=== PATIENT | female | born 1995 | race Caucasian/White ===

== ENCOUNTER → 2017-11-29 10:16 | Outpatient (CLI) | payer MEDICAID, SELFPAY ==
[2017-11-29 12:00] LABS: Thyroid Stim Hormone (TSH) 1.05 uIU/mL (0.358-3.74)
== END ==
PROVIDERS: Nurse Practitioner Women's Health; Visit Provider Family Medicine Geriatric Medicine
DX: N91.2 Amenorrhea, unspecified (principal)
CPT/HCPCS: 36415; 84443

== ENCOUNTER → 2023-04-26 | Outpatient (CLI) | payer MEDICAID, SELFPAY | END | disposition home or self-care (01) | PROVIDERS: PCP Family Medicine; Referring Provider Otolaryngology Otolaryngology/Facial Plastic Surgery; Visit Provider Otolaryngology Otolaryngology/Facial Plastic Surgery | DX: J03.90 Acute tonsillitis, unspecified (principal) | CPT/HCPCS: 87070 ==

== ENCOUNTER → 2023-12-27 | Outpatient (CLI) | payer SELFPAY ==
--- NOTE | 2023-12-27 07:01 | CT_ITS ---
STUDY: CT CHEST, ABDOMEN T PELVIS WITH CONTRAST REASON FOR EXAM: Female, 28 years old. Fever of unknown origin RADIATION DOSAGE (If Supplied By Facility): CTDIvol = ( 10.38 ) mGy, DLP = ( 1175.44 ) mGycm TECHNIQUE: Transaxial imaging was performed following intravenous administration of Oral and amp; IV Readi-CAT and amp; 75mL Isovue-370. Individualized dose optimization techniques were used for this CT. COMPARISON: No relevant priors. FINDINGS: CHEST There is elevation of the right hemidiaphragm. Minimal degree of bibasilar atelectasis. There is no demonstrated pleural abnormality. Normal heart and pericardium. Normal mediastinum. Normal hilar regions. Normal unenhanced pulmonary arteries. Normal aorta arch and descending thoracic aorta. Normal osseous structures. There is no demonstrated abnormality of the visualized upper abdomen. ABDOMEN There is decreased attenuation of the liver consistent with steatosis. Normal gallbladder and extrahepatic biliary system. Normal spleen. Normal pancreas. Normal bilateral adrenal glands. Normal right kidney. Normal left kidney. Normal visualized stomach. Normal small intestine. Normal colon. The appendix is visualized and appears normal. Normal abdominal aorta. Normal inferior vena cava. Normal retroperitoneum. Normal abdominal wall. Normal osseous structures. PELVIS Normal urinary bladder. Follicles are seen in the right ovary. Normal visualized small intestine. Normal visualized colon. There is no pelvic fluid. There is no pelvic lymphadenopathy or mass lesion. Normal visualized pelvic arteries. Normal abdominal wall. Normal osseous structures. CT/CT Chest, Abd, Pel w/Contrast IMPRESSION: Mild fatty infiltration of the liver. Mild bibasilar linear atelectasis. Elevation of the right hemidiaphragm. Electronically Signed: Kwesi Caal MD at 14:27 [facility] ,
--- NOTE | 2023-12-27 07:01 | CT_ITS ---
STUDY: CT SOFT TISSUE NECK WITH CONTRAST REASON FOR EXAM: Female, 28 years old. Fever of unknown origin. Sore throat. Muscle and joint pain. Fatigue. RADIATION DOSAGE (If Supplied By Facility): CTDIvol = ( 11 ) mGy, DLP = ( 1175.44 ) mGycm TECHNIQUE: The patient was scanned in a multi-detector CT scanner. High resolution transaxial imaging was performed following intravenous administration of Oral and amp; IV Readi-CAT and amp; 75mL Isovue-370. Sagittal and coronal images were reconstructed. Individualized dose optimization techniques were used for this CT. COMPARISON: None. FINDINGS: Normal bilateral parotid glands. Normal bilateral emergency dispatcher spaces. Normal bilateral parapharyngeal spaces. Normal bilateral carotid spaces. Normal bilateral sublingual and submandibular glands and spaces. Normal visualized nasopharynx. Normal retropharyngeal space. Normal perivertebral space. Mild enlargement of the right faucial tonsils. There is a 3.7 mm area of decreased attenuation with peripheral enhancement along its posterior lateral aspect. This may represent a tiny abscess. The visualized tongue, tongue base and oropharynx are normal. The visualized cervical lymph nodes (levels I-) are within normal size limits, and maintain normal morphology. There is no demonstrated solid or cystic mass lesion. There is no abnormal contrast enhancement. Normal epiglottis, bilateral vallecula and hypopharynx. The pre-epiglottic and paraglottic adipose spaces are normal. Normal visualized bilateral piriform sinuses, aryepiglottic folds, vocal cords, and arytenoid-cricoid articulations. Normal subglottic trachea. Normal bilateral lobes of the thyroid gland. Normal visualized pulmonary apices. Normal visualized paranasal sinuses. Normal visualized cervical spine. CT/Soft Tissue Neck WITH Contrast IMPRESSION: Mild enlargement of the right faucial tonsils with possible tiny abscess along its posterior lateral aspect. This is best seen on axial image #74 on series #3. Electronically Signed: Kwesi Caal MD at 14:24 EST ,
--- OUTSIDE RECORDS SUMMARY | 2023-12-27 07:03 | XMS RPT_ITS | CCD ---
Author Name Unknown Address [id number] [place] [address] Organization [facility] Care Team Providers Care Emergency Response Technician Name Role Phone YANELIS PATEL Unavailable Unavailable ANTHONY PAUL Unavailable Unavailable Yanelis Guerrero Primary Care Provider [phone] Yanelis Guerrero Primary Care Provider Tyler PEREZ, Sully Parikh Primary Care Provider Tyler PEREZ, Sully Parikh Primary Care Provider Tyler PEREZ, Sully Parikh Primary Care Provider SULEMAN NIELSEN Attending Unavailable PHYSICIAN, NOT RECORDED Primary Care Physician U gypsy [facility]-, CRISTOBAL Sifuentes Attending [facility] PHYSICIAN, NOT RECORDED Primary Care Unavaila lillie DELGADILLO STAFF TRAINER-MANAGER STATISTICSTHERESA Attending Demetrio bhandari PHYSICIAN, NOT RECORDED Primary Care Unavaila lillie Lawler STAFF TRAINER-MANAGER STATISTICS, Dianne Brown Primary Care Provider Giovanny Ortiz MD Unavailable SULLY SCOTT Primary Care Unavailable SULEMAN NIELSEN Attending Unavailable SULLY SCOTT Primary Care Unavailable SULEMAN NIELSEN Attending Unavailable DIANNE LAWLER Attending Unavailable SULLY SCOTT Primary Care Unavailable SULLY SCOTT Primary Care Unavailable IVONNE BADILLO Attending Unavailable GIOVANNY ORTIZ Attending Unavailable DIANNE LAWLER Primary Care Unavailable DIANNE LAWLER Referring Unavailable GIOVANNY ORTIZ Referring Unavailable DIANNE LAWLER Primary Care Unavailable GIOVANNY ORTIZ Attending Unavailable SULLY SCOTT Primary Care Unavailable SULLY SCOTT Primary Care Unavailable CRISTELA MADRIGAL Attending Unavailable SULLY SCOTT Primary Care Unavailable Allergies Allergy Classification Reported Allergen(s) Allergy Type Date of Onset Reaction(s) Facility (20 sources) FLUoxetine; Translations: [FLUOXETINE] Drug Allergy 09-08-2020 Mental Status Change, Anxiety [facility] Medications Current Medications Medication Drug Class(es) Dates Sig (Normalized) Sig (Original) amoxicillin 875 mg / clavulanate 125 mg oral tablet (1 source) Penicillin-class Antibacterial Start: 01-10-2023 End: 01-20-2023 take 1 tablet by mouth every twelve hours amoxicillin-clavu lanic acid (AUGMENTIN) 875-125 mg per tablet Indications: Pharyngitis, unspecified etiology Take 1 tablet by mouth every 12 hours for 10 days. 20 tablet 0 01/10/2023 01/20/2023 Active Completed/Discontinued Medications Medication Drug Class(es) Dates Sig (Normalized) Sig (Original) clindamycin 10 mg/ml topical lotion (11 sources) Lincosamide Antibacterial Start: 09-19-2022 Clindamycin Phosphate (CLEOCIN T) 1 % lotion Indications: Acne vulgaris Apply to affected area twice daily. Of chest, may apply to face every morning if needed 60 mL 5 09/19/2022 Active Problems Active Problems Problem Classification Problem Date Documented Date Episodic/Chronic Allergic reactions (1 source) Inflammatory dermatosis; Translations: [Dermatitis, unspecified] Episodic Conditions associated with dizziness or vertigo (1 source) Meniere's disease, bilateral; Translations: [Meniere's disease of both ears] Onset: 03-15-2018 03-15-2018 Chronic Fever of unknown origin (1 source) Fever; Translations: [Fever in adult] Episodic Immunizations and screening for infectious disease (4 sources) Patient encounter status; Translations: [Encounter for immunization] Onset: 09-15-2023 09-15-2023 Episodic Malaise and fatigue (4 sources) Fatigue; Translations: [Other fatigue] Onset: 10-17-2023 10-17-2023 Episodic Menstrual disorders (1 source) Postpill amenorrhea; Translations: [Amenorrhea following discontinuation of oral contraceptive use] Onset: 02-13-2018 02-13-2018 Chronic Mood disorders (16 sources) Recurrent major depression in partial remission; Translations: [Major depressive disorder, recurrent, in partial remission] Onset: 05-21-2020 09-08-2020 Chronic Other and unspecified benign neoplasm (1 source) Multiple benign melanocytic nevi ; Translations: [Melanocytic nevi, unspecified] Episodic Other circulatory disease (1 source) Spider nevus; Translations: [Nevus, non-neoplastic] Episodic Other connective tissue disease (1 source) Muscle pain; Translations: [Myalgia] Episodic Other connective tissue disease (1 source) Disorder of soft tissue; Translations: [Soft tissue disorder, unspecified] Episodic Other connective tissue disease (3 sources) Neuralgia; Translations: [Neuralgia and neuritis, unspecified] Onset: 10-17-2023 10-17-2023 Episodic Other connective tissue disease (1 source) Neuralgia and neuritis, unspecified; Translations: [Nerve pain] Onset: 10-17-2023 Episodic Other fractures (1 source) Closed fracture of vertebral column; Translations: [Unspecified fracture of sacrum, subsequent encounter for fracture with routine healing] Episodic Other non-traumatic joint disorders (3 sources) Joint pain; Translations: [Pain in unspecified joint] Onset: 10-17-2023 10-17-2023 Episodic Other non-traumatic joint disorders (1 source) Pain in unspecified joint; Translations: [Arthralgia, unspecified joint] Onset: 10-17-2023 Episodic Other nutritional; endocrine; and metabolic disorders (1 source) Familial partial lipodystrophy; 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, not elsewhere classified] 05-29-2023 Chronic Other nutritional; endocrine; and metabolic disorders (1 source) Personal history of other endocrine, nutritional and metabolic disease; Translations: [History of type 1 diabetes mellitus] Episodic Other nutritional; endocrine; and metabolic disorders (1 source) Weight gain; Translations: [Weight gain] Episodic Other screening for suspected conditions (not mental disorders or infectious disease) (1 source) Encounter for screening, unspecified; Translations: [Encounter for health-related screening] Onset: 09-06-2023 Episodic Other skin disorders (1 source) Eruption; Translations: [Rash in adult] Episodic Other skin disorders (1 source) Solar lentiginosis; Translations: [Other melanin hyperpigmentation] Episodic Other skin disorders (1 source) Acne vulgaris; Translations: [Acne vulgaris] Episodic Other skin disorders (1 source) Nail discoloration; Translations: [Other nail disorders] Episodic Other upper respiratory infections (6 sources) Acute pharyngitis; Translations: [Acute pharyngitis, unspecified] Onset: 02-28-2023 Episodic Residual codes; unclassified (1 source) Treatment not available; Translations: [Procedure and treatment not carried out for other reasons] Episodic Residual codes; unclassified (1 source) Family history of malignant neoplasm of skin; Translations: [Family history of malignant neoplasm of other organs or systems] Episodic Past or Other Problems Problem Classification Problem Date Documented Da te Episodic/Chronic Abdominal pain (17 sources) Right upper quadrant pain; Translations: [Right upper quadrant pain] Onset: 05-21-2020 05-21-2020 Episodic Cardiac dysrhythmias (16 sources) Palpitations; Translations: [Palpitations] Onset: 05-21-2020 05-21-2020 Episodic Coagulation and hemorrhagic disorders (16 sources) Petechiae; Translations: [Spontaneous ecchymoses] Onset: 05-21-2020 05-21-2020 Episodic Results Test Name Value Interpretation Reference Range Facil ity Vital Signs Date Time Vital Sign Value Performing Clinician Faci lity 10-17-2023 09:41-0500 Body height 167.6 cm Cristela Madrigal APRN.CNP Work Phone: [facility] 10-17-2023 09:41-0500 Body temperature 98.1 [degF] Cristela Madrigal APRN.CNP Work Phone: [facility] 10-17-2023 09:41-0500 Body weight 60.24 kg Cristela Madrigal APRN.CNP Work Phone: [facility] 10-17-2023 09:41-0500 Diastolic blood pressure 79 mm[Hg] Cristela Madrigal APRN.CNP Work Phone: [facility] 10-17-2023 09:41-0500 Heart rate 84 /min Cristela Madrigal APRN.CNP Work Phone: [facility] 10-17-2023 09:41-0500 SaO2% (BldA) [Mass fraction] 99 % Cristela Madrigal APRN.CNP Work Phone: [facility] 12-19-2023 09:41-0500 Systolic blood pressure 117 mm[Hg] Cristela Madrigal STAFF TRAINER.MANAGER STATISTICS Work Phone: [facility] 01-10-2023 13:07-0400 Body temperature 98.8 [degF] Suleman Burdenr STAFF TRAINER.MANAGER STATISTICS Work Phone: [facility] 01-10-2023 13:07-0400 Body weight 61.69 kg Suleman Burdenr STAFF TRAINER.MANAGER STATISTICS Work Phone: [facility] 01-10-2023 13:07-0400 Diastolic blood pressure 80 mm[Hg] Suleman Ilir STAFF TRAINER.MANAGER STATISTICS Work Phone: [facility] 01-10-2023 13:07-0400 Heart rate 98 /min Suleman Nielsen STAFF TRAINER.MANAGER STATISTICS Work Phone: [facility] 01-10-2023 13:07-0400 SaO2% (BldA) [Mass fraction] 97 % Suleman Nielsen STAFF TRAINER.MANAGER STATISTICS Work Phone: [facility] 01-10-2023 13:07-0400 Systolic blood pressure 115 mm[Hg] Suleman Burdenr STAFF TRAINER.MANAGER STATISTICS Work Phone: [facility] 12-01-2022 13:34-0500 Body height 167.6 cm Suleman Nielsen STAFF TRAINER.MANAGER STATISTICS Work Phone: [facility] 12-01-2022 13:34-0500 Body temperature 98.49 [degF] Suleman Burdenr STAFF TRAINER.MANAGER STATISTICS Work Phone: [facility] 12-01-2022 13:34-0500 Body weight 60.78 kg Suleman Nielsen STAFF TRAINER.MANAGER STATISTICS Work Phone: [facility] 12-01-2022 13:34-0500 Diastolic blood pressure 71 mm[Hg] Suleman Burdenr STAFF TRAINER.MANAGER STATISTICS Work Phone: [facility] 12-01-2022 13:34-0500 Heart rate 116 /min Suleman Burdenr STAFF TRAINER.MANAGER STATISTICS Work Phone: [facility] 12-01-2022 13:34-0500 Respiratory rate 16 /min Suleman Ilir STAFF TRAINER.MANAGER STATISTICS Work Phone: [facility] 12-01-2022 13:34-0500 SaO2% (BldA) [Mass fraction] 99 % Suleman Nielsen STAFF TRAINER.MANAGER STATISTICS Work Phone: [facility] 12-01-2022 13:34-0500 Systolic blood pressure 104 mm[Hg] Suleman Nielsen STAFF TRAINER.MANAGER STATISTICS Work Phone: [facility] 09-19-2022 10:29-0500 Body height 167.6 cm Ivonne Waller PA-C Work Phone: [facility] 09-19-2022 10:29-0500 Body weight 62.05 kg Ivonne Waller PA-C Work Phone: [facility] 09-19-2022 10:29-0500 Diastolic blood pressure 73 mm[Hg] Ivonne Justino PA-C Work Phone: [facility] 09-19-2022 10:29-0500 Systolic blood pressure 100 mm[Hg] Ivonne Waller PA-C Work Phone: [facility] 05-25-2022 09:18-0400 Body weight 61.69 kg Dianne Lawler APRN.MANAGER STATISTICS Work Phone: [facility] 05-25-2022 09:18-0400 Diastolic blood pressure 79 mm[Hg] Dianne Lawler STAFF TRAINER.MANAGER STATISTICS Work Phone: [facility] 05-25-2022 09:18-0400 Heart rate 80 /min Dianne Lawler APRN.MANAGER STATISTICS Work Phone: [facility] 05-25-2022 09:18-0400 SaO2% (BldA) [Mass fraction] 99 % Dianne Lawler APRN.MANAGER STATISTICS Work Phone: [facility] 05-25-2022 09:18-0400 Systolic blood pressure 113 mm[Hg] Dianne Lawler APRN.MANAGER STATISTICS Work Phone: [facility] Encounters Encounter Date Encounter Type Care Provider Facility Start: 10-18-2023 Telephone encounter [facility] STAFF TRAINER.MANAGER STATISTICS Work Phone: [facility] Procedures Date Procedure Procedure Detail Performing Clinician Start: 09-15-2023 INFLUENZA VACCINE, P RSV FREE, AGE 6 MO - 64 YR, QUADRIVALENT (AFLURIA, FLUARIX, FLULAVAL, FLUZONE) Dianne Lawler STAFF TRAINER.MANAGER STATISTICS Work Phone: Start: 01-10-2023 RAPID STREP TEST B/O Eryn seph D Ilir STAFF TRAINER.MANAGER STATISTICS Work Phone: Start: 12-01-2022 RAPID STREP TEST B/O Eryn seph D Ilir STAFF TRAINER.MANAGER STATISTICS Work Phone: Start: 06-13-2022 CBC + DIFF Dianne loyola STAFF TRAINER.MANAGER STATISTICS Work Phone: Start: 06-13-2022 Comprehensive metabo lic 2000 panel - Serum or Plasma Dianne Lawler STAFF TRAINER.MANAGER STATISTICS Work Phone: Start: 06-13-2022 LIPID PANEL BASIC Dianne Lawler STAFF TRAINER.MANAGER STATISTICS Work Phone: Start: 06-13-2022 Radex sacrum & coccy x minimum 2 views Dianne Lawler STAFF TRAINER.MANAGER STATISTICS Work Phone: Start: 05-31-2022 Us abdominal real ti me w/image limited Dianne Lawler STAFF TRAINER.MANAGER STATISTICS Work Phone: Start: 04-16-2020 Us abdominal real ti me w/image limited Yanelis Guerrero Work Phone: Start: 10-03-2019 Assay of free thyroxine Yanelis Guerrero Work Phone: Start: 10-03-2019 Assay of thyroid sti mulating hormone tsh Yanelis Guerrero Work Phone: Start: 10-03-2019 Assay of triiodothyr onine t3 free Yanelis Guerrero Work Phone: Start: 10-03-2019 C-reactive protein Scout Guerrero Work Phone: Start: 10-03-2019 CBC WITH DIFFERENTIAL M shane Guerrero Work Phone: Start: 10-03-2019 Comprehensive metabolic panel Yanelis Guerrero Work Phone: Start: 10-03-2019 Creatine kinase total M shane Guerrero Work Phone: Start: 10-03-2019 GLOMERULAR FILTRATION RATE Yanelis Guerrero Work Phone: Start: 10-03-2019 Hemoglobin A1c/Hemoglobin.total in Blood Yanelis Guerrero Work Phone: Start: 10-03-2019 Lipid panel Yanelis godwin Work Phone: Start: 10-03-2019 Rheumatoid factor quantitative Yanelis Guerrero Work Phone: Start: 10-03-2019 Sedimentation rate r bc automated Yanelis Guerrero Work Phone: Start: 07-30-2018 Microscopic observat ion [Identifier] in Cervix by Cyto stain Yanelis [place] Plan of Treatment Date Care Activity Detail Author Start: 09-15-2033 Urine microalbumin profile DTa P,Tdap,Td Vaccine (2 - Td or Tdap) [facility] Start: 10-17-2024 Covid-19 Vaccine (#1) Covid-19 Vacci ne (#1) [facility] Immunizations Immunization Date Immunization Notes Care Provider Fa cility 09-15-2023 influenza, injectabl e, quadrivalent, preservative free Sully Scott MD Work Phone: [facility] 09-15-2023 tetanus toxoid, redu cachorro diphtheria toxoid, and acellular pertussis vaccine, adsorbed Sully Scott MD Work Phone: [facility] 10-03-2019 influenza, seasonal, injectable Yanelis Guerrero [facility] 07-30-2018 hepatitis A and hepatitis B vaccine Mohsen Tamayo APRN.MANAGER STATISTICS Work Phone: [facility] 07-30-2018 hepatitis B vaccine, unspecified formulation Provider [facility] Payers Date Payer Category Payer Self-pay 2018 Unknown [employer] xxxxxxxxxx 2018-Present xxxxxxxxxx [id number] 2018 Unknown IZA COU[employer] HI X [id number] 2018-Present HMO [id number] 1995 Unknown [id number] 1995 Unknown [id number] Unknown [id number] Unknown [id number] Unknown [id number] Unknown [id number] Social History Date Type Detail Facility Start: 10-03-2019 Tobacco smoking stat us [facility] Former smoker [facility] Start: 10-03-2019 End: 10-17-2023 Alcohol intake Current drinker of alcohol (finding) [facility] Start: 02-13-2018 Alcohol Comment social [facility] Start: 1995 Sex Assigned At Not on file [facility] Start: 09-02-2021 End: 10-17-2023 Tobacco smoking status INIS Never smoked tobacco [facility] Start: 09-02-2021 End: 01-10-2023 Tobacco use and exposure Smokeless tobacco non-user [facility] Start: 09-08-2020 End: 09-02-2021 History SDOH Alcohol Frequency 2 [facility] Start: 09-02-2021 History SDOH Alcohol Comment occ [facility] Start: 09-02-2021 History SDOH Social Connections Phone 3 [facility] Start: 09-02-2021 History SDOH Social Connections Meetings 1 [facility] Start: 09-02-2021 History SDOH Social Connections Living 7 [facility] Start: 05-15-2022 End: 09-19-2022 Exposure to SARS-CoV-2 (event) Not sure [facility] Tobacco smoking status No Smokin g Status Entered [facility] Sex Assigned At Female [facility] Start: 05-29-2023 End: 09-06-2023 History of Social function [facility] Start: 05-29-2023 End: 09-06-2023 Tobacco use panel [facility] Do you belong to any clubs or organizations such as religious groups, unions, fraternal or athletic groups, or school groups? No [facility] Are you now , , , , never or living with a partner? Never [facility] How often to you hav e a drink containing alcohol? Monthly or less [facility] Average Number of Drinks Not on file [facility] Start: 10-17-2023 Tobacco use and exposure User of smokeless tobacco [facility] How often to you hav e a drink containing alcohol? Never [facility] Do you feel stress - tense, restless, nervous, or anxious, or unable to sleep at night because your mind is troubled all the time - these days [OSQ] To some extent [facility] Start: 10-17-2023 Tobacco Comment Occ, nicotine gum [facility] NEGATED: Highlighted rowStart: RODRIGOF History of tobacco use Passive smoker [facility] Clinical Notes 04-24-2022 to 10-18-2023 Telephone Encounter - Edna Desir MA - 10/18/2023 1:32 PM Tiffany Longo - 10/17/2023 10:11 AM Cristela Carranza APRN.CNP - 10/17/2023 9:50 AM ESTPatient Instructions Note Date & Type Note Facility 10-18-2023 Miscellaneous Notes Per Cristela Please let patient know that her lyme testing was negative. :Pt informed of message. No questions at this time. documented in this encounter [facility] 10-17-2023 Note HNO ID: [id number] Author: Cristela Madrigal APRN.CNP Service: ? Author Type: Nurse Practitioner Type: Progress Notes Filed: 10/17/2023 10:08 AM Note Text: Morgan Boston is a 28 year old female here today acutely because of having: Patient presents with: Mass: On and off for 1 year, discuss having Lymes test Sore Throat Dizziness Fatigue Neck Pain Nerve Pain Musculoskeletal Problem: Twitching and numbness Headache Tonsillar and lymph node swelling on and off for the past 1 year. Nerve pain: Mostly hands, feet, and legs. She states started out with numbness/tingling about 6 years ago. Has been having some numbness and tingling at night, hurts during the day. Tingling and stabbing at night. Legs and feet hurt at night. She states doesn't feel like joints, muscles, or bones. This has improved. She states if she is sick or stressed out she will have flare ups . Lots of muscle twitching all over. Fevers off and on for the past 1 year. This has improved over the past 1 year. She states her normal temperature is around 97. Hasn't actually been checking her temperature consistently. States she feels feverish . Feels like she is having flare ups . Has gone about 6 days without symptoms. Has been having 3 days on and 1 normal day and then will have another flare . Saw GI provider in the past and states she looked for autoimmune, thyroid, hgb A1c has been normal. She states she does not want to do any additional testing. She only wants checked for lyme dz. Review of Systems Constitutional: Positive for fatigue and fever (subjective). Negative for chills. HENT: Positive for sore throat. Postnasal drip: cbc. Musculoskeletal: Positive for arthralgias, myalgias and neck pain. Neurological: Positive for dizziness and headaches. Physical Exam Constitutional: Appearance: Normal appearance. Cardiovascular: Rate and Rhythm: Normal rate and regular rhythm. Pulmonary: Effort: Pulmonary effort is normal. Breath sounds: Normal breath sounds. Abdominal: General: Abdomen is flat. Bowel sounds are normal. Palpations: Abdomen is soft. Skin: General: Skin is warm and dry. Neurological: Mental Status: She is alert and oriented to person, place, and time. Psychiatric: Mood and Affect: Mood normal. Behavior: Behavior normal. Ht 167.6 cm (5' 5.98 ) Wt 60.2 kg (132 lb 12.8 oz) LMP 09/27/2021 (Exact Date) BMI 21.44 kg/m? BMI 21.44 kg/(m2) ASSESSMENT/PLAN: 1. Fatigue, unspecified type - ICD9: 780.79, ICD10: R53.83 (primary diagnosis) - LYME AB LATE >30 DAYS SYMPTOMS 2. Arthralgia, unspecified joint - ICD9: 719.40, ICD10: M25.50 - LYME AB LATE >30 DAYS SYMPTOMS 3. Nerve pain - ICD9: 729.2, ICD10: M79.2 - LYME AB LATE >30 DAYS SYMPTOMS Cristela Madrigal APRN.[facility] 10-17-2023 Nurse Note Venipuncture performed to left antecubital. Number of tubes collected: 1 gold. documented in this encounter [facility] 10-17-2023 History of Presen t illness Narrative Morgan Boston is a 28 year old female here today acutely because of having: Patient presents with: Mass: On and off for 1 year, discuss having Lymes test Sore Throat Dizziness Fatigue Neck Pain Nerve Pain Musculoskeletal Problem: Twitching and numbness Headache Tonsillar and lymph node swelling on and off for the past 1 year. Nerve pain: Mostly hands, feet, and legs. She states started out with numbness/tingling about 6 years ago. Has been having some numbness and tingling at night, hurts during the day. Tingling and stabbing at night. Legs and feet hurt at night. She states doesn't feel like joints, muscles, or bones. This has improved. She states if she is sick or stressed out she will have flare ups . Lots of muscle twitching all over. Fevers off and on for the past 1 year. This has improved over the past 1 year. She states her normal temperature is around 97. Hasn't actually been checking her temperature consistently. States she feels feverish . Feels like she is having flare ups . Has gone about 6 days without symptoms. Has been having 3 days on and 1 normal day and then will have another flare . Saw GI provider in the past and states she looked for autoimmune, thyroid, hgb A1c has been normal. She states she does not want to do any additional testing. She only wants checked for lyme dz. Review of Systems Constitutional: Positive for fatigue and fever (subjective). Negative for chills. HENT: Positive for sore throat. Postnasal drip: cbc. Musculoskeletal: Positive for arthralgias, myalgias and neck pain. Neurological: Positive for dizziness and headaches. Physical Exam Constitutional: Appearance: Normal appearance. Cardiovascular: Rate and Rhythm: Normal rate and regular rhythm. Pulmonary: Effort: Pulmonary effort is normal. Breath sounds: Normal breath sounds. Abdominal: General: Abdomen is flat. Bowel sounds are normal. Palpations: Abdomen is soft. Skin: General: Skin is warm and dry. Neurological: Mental Status: She is alert and oriented to person, place, and time. Psychiatric: Mood and Affect: Mood normal. Behavior: Behavior normal. Ht 167.6 cm (5' 5.98 ) Wt 60.2 kg (132 lb 12.8 oz) LMP 09/27/2021 (Exact Date) BMI 21.44 kg/m BMI 21.44 kg/(m^2) ASSESSMENT/PLAN: 1. Fatigue, unspecified type - ICD9: 780.79, ICD10: R53.83 (primary diagnosis) - LYME AB LATE >30 DAYS SYMPTOMS 2. Arthralgia, unspecified joint - ICD9: 719.40, ICD10: M25.50 - LYME AB LATE >30 DAYS SYMPTOMS 3. Nerve pain - ICD9: 729.2, ICD10: M79.2 - LYME AB LATE >30 DAYS SYMPTOMS Cristela Madrigal APRN.MANAGER STATISTICS documented in this encounter [facility] 09-18-2023 Miscellaneous Notes Patient [facility] a [facility] [facility] 09-15-2023 Nurse Note Patient received tdap and flu shot at 1140 Explained to patient she will need to wait here for 15 minutes for us to monitor to make sure she is not going to have an adverse reaction. Seated in lobby at 1140 Patient left at 1155 with no complications. Yanelis Hernandez MA documented in this encounter [facility] 09-15-2023 Miscellaneous Notes Addended by: DIANNE LAWLER on: 09/15/2023 11:13 AM Modules accepted: Orders Flu and tdap entered. Patient will be coming in to get Flu and Tdap. Advised we dont have adult MMR and she can use the health department. Unable to contact patient to advise that we can't give Hep B or MMR. Will you put orders in for the Flu and Tdap in case she shows up and still wants these done here? Thank you documented in this encounter [facility] 06-22-2023 Miscellaneous Notes Patient calls today. Reason for Call: She wanted to know if we could order las to check a medication someone else prescribes... I let her know she should contact that provider. She said she would. [phone] (home) [phone] (cell) Patient last appointment: 01/10/2023 Liane Gutierrez documented in this encounter [facility] 05-17-2023 Evaluation + Plan note Diagnostic Tests PendingTGT Ab (IGA) 05/17/23Antinuclear Antibody Screen, Serum 05/17/23Mitochondrial Antibody 05/17/23Smooth Muscle Antibody Screen 05/17/23 [facility] 03-02-2023 Note . MICRO - Microbiology PROCEDURE: Culture Beta Strep Only [*1] SOURCE: Throat BODY SITE: COLLECTED DATE/TIME: 02/28/2023 15:01 EDT RECEIVED DATE/TIME: 02/28/2023 18:40 EDT START DATE/TIME: 02/28/2023 18:41 EDT FREE TEXT SOURCE: FINAL REPORTS Final Report [] Verified Date/Time/Personnel: 03/02/2023 07:09 EDT No Beta Strep isolated at 48hrs. PRELIMINARY REPORTS Preliminary Report [] Verified Date/Time/Personnel: 03/01/2023 08:46 EDT No beta Strep isolated at 24 hours. Performing Locations *1: This test was performed at: [facility], [address] [place] [address], [facility] , [facility] ([place]) 01-10-2023 Note HNO ID: [id number] Author: Suleman Nielsen APRN.MANAGER STATISTICS Service: ? Author Type: Nurse Practitioner Type: Progress Notes Filed: 01/10/2023 1:49 PM Note Text: Morgan Boston is a 27 year old female here today acutely because of having: Sore Throat and Fever Patient states 3 days ago she started with a fever and sore throat. Denies any nasal congestion, drainage, nausea, vomiting, abdominal pain, rash. Has been around her brother with similar symptoms. Currently is taking [id number] Tylenol and ibuprofen as needed for pain. Does report this is the third time she has had the same symptoms in the last couple months. Discussed possible referral to ENT if it returns, but patient does not want to have her tonsils removed. Review of Systems Constitutional: Positive for fever. Negative for chills and fatigue. HENT: Positive for sore throat. Negative for congestion, ear pain, postnasal drip, rhinorrhea and sinus pain. Respiratory: Negative for cough, chest tightness, shortness of breath and wheezing. Cardiovascular: Negative for chest pain, palpitations and leg swelling. Gastrointestinal: Negative for abdominal pain, diarrhea, nausea and vomiting. Skin: Negative for color change and rash. Neurological: Negative for dizziness and headaches. BP 115/80 Pulse 98 Temp 37.1 ?C (98.8 ?F) (Oral) Wt 61.7 kg (136 lb) LMP 09/27/2021 (Exact Date) SpO2 97% BMI 21.96 kg/m? BMI 21.96 kg/(m2) ALLERGIES Allergen Reactions Prozac [Fluoxetine] Mental Status Change sleepiness Physical Exam Constitutional: Appearance: Normal appearance. HENT: Right Ear: Tympanic membrane, ear canal and external ear normal. Left Ear: Tympanic membrane, ear canal and external ear normal. Nose: No congestion or rhinorrhea. Right Sinus: No maxillary sinus tenderness or frontal sinus tenderness. Left Sinus: No maxillary sinus tenderness or frontal sinus tenderness. Mouth/Throat: Mouth: Mucous membranes are moist. Pharynx: Posterior oropharyngeal erythema (white lesions) present. Cardiovascular: Rate and Rhythm: Normal rate and regular rhythm. Heart sounds: Normal heart sounds. No murmur heard. Pulmonary: Effort: Pulmonary effort is normal. No respiratory distress. Breath sounds: Normal breath sounds. No wheezing. Skin: General: Skin is warm and dry. Neurological: Mental Status: She is alert and oriented to person, place, and time. ASSESSMENT/PLAN: 1. Pharyngitis, unspecified etiology - ICD9: 462, ICD10: J02.9 (primary diagnosis) - suspect strep - Rapid Strep negative in the office today and Throat culture pending - AMOXICILLIN 875 MG-POTASSIUM CLAVULANATE 125 MG TABLET 2. Sore throat - ICD9: 462, ICD10: J02.9 - RAPID STREP TEST B/O - THROAT CULTURE Suleman Nielsen CNP Follow Up: Return if symptoms worsen or fail to improve. Prescription instructions reviewed with patient as applicable. Patient advised if symptoms do not improve or if symptoms worsen sooner, to contact their primary care physician. Potential red flag symptoms discussed with the patient. Reviewed appropriate action plan to take if red flag symptoms occur. Patient agreeable to treatment plan. Voice recognition software utilized. Minor grammatical and/or spelling errors may exist. Portions of this note have been entered by ancillary staff. I have reviewed and when necessary edited, so that they are an adequate record of my encounter with this patient. [facility] 01-10-2023 History of Presen t illness Narrative Morgan Boston is a 27 year old female here today acutely because of having: Sore Throat and Fever Patient states 3 days ago she started with a fever and sore throat. Denies any nasal congestion, drainage, nausea, vomiting, abdominal pain, rash. Has been around her brother with similar symptoms. Currently is taking [id number] Tylenol and ibuprofen as needed for pain. Does report this is the third time she has had the same symptoms in the last couple months. Discussed possible referral to ENT if it returns, but patient does not want to have her tonsils removed. Review of Systems Constitutional: Positive for fever. Negative for chills and fatigue. HENT: Positive for sore throat. Negative for congestion, ear pain, postnasal drip, rhinorrhea and sinus pain. Respiratory: Negative for cough, chest tightness, shortness of breath and wheezing. Cardiovascular: Negative for chest pain, palpitations and leg swelling. Gastrointestinal: Negative for abdominal pain, diarrhea, nausea and vomiting. Skin: Negative for color change and rash. Neurological: Negative for dizziness and headaches. BP 115/80 Pulse 98 Temp 37.1 C (98.8 F) (Oral) Wt 61.7 kg (136 lb) LMP 09/27/2021 (Exact Date) SpO2 97% BMI 21.96 kg/m BMI 21.96 kg/(m^2) ALLERGIES Allergen Reactions Prozac [Fluoxetine] Mental Status Change sleepiness Physical Exam Constitutional: Appearance: Normal appearance. HENT: Right Ear: Tympanic membrane, ear canal and external ear normal. Left Ear: Tympanic membrane, ear canal and external ear normal. Nose: No congestion or rhinorrhea. Right Sinus: No maxillary sinus tenderness or frontal sinus tenderness. Left Sinus: No maxillary sinus tenderness or frontal sinus tenderness. Mouth/Throat: Mouth: Mucous membranes are moist. Pharynx: Posterior oropharyngeal erythema (white lesions) present. Cardiovascular: Rate and Rhythm: Normal rate and regular rhythm. Heart sounds: Normal heart sounds. No murmur heard. Pulmonary: Effort: Pulmonary effort is normal. No respiratory distress. Breath sounds: Normal breath sounds. No wheezing. Skin: General: Skin is warm and dry. Neurological: Mental Status: She is alert and oriented to person, place, and time. ASSESSMENT/PLAN: 1. Pharyngitis, unspecified etiology - ICD9: 462, ICD10: J02.9 (primary diagnosis) - suspect strep - Rapid Strep negative in the office today and Throat culture pending - AMOXICILLIN 875 MG-POTASSIUM CLAVULANATE 125 MG TABLET 2. Sore throat - ICD9: 462, ICD10: J02.9 - RAPID STREP TEST B/O - THROAT CULTURE Suleman Nielsen CNP Follow Up: Return if symptoms worsen or fail to improve. Prescription instructions reviewed with patient as applicable. Patient advised if symptoms do not improve or if symptoms worsen sooner, to contact their primary care physician. Potential red flag symptoms discussed with the patient. Reviewed appropriate action plan to take if red flag symptoms occur. Patient agreeable to treatment plan. Voice recognition software utilized. Minor grammatical and/or spelling errors may exist. Portions of this note have been entered by ancillary staff. I have reviewed and when necessary edited, so that they are an adequate record of my encounter with this patient. documented in this encounter [facility] 12-01-2022 Note HNO ID: [id number] Author: Suleman Nielsen APRN.ARUNA Service: ? Author Type: Nurse Practitioner Type: Progress Notes Filed: 12/01/2022 2:38 PM Note Text: Morgan Boston is a 27 year old female here today acutely because of having: Sore Throat, Body Aches, Fever, Headache, and Nausea Patient states patient states she started with a sore throat, headache, nausea, fever over a month ago. She was seen at [facility] [facility] and with walk-in clinic and was given amoxicillin or Augmentin, but was feeling better the next day so she did not take it. Pt started with the same symptoms 6 days ago so she started the medication for several days, but feels it was not doing anything after 48 hours, so she stopped the medication. Denies any nasal congestion, drainage, cough or vomiting. Currently is taking ibuprofen for the pain. Review of Systems Constitutional: Positive for chills and fever. Negative for diaphoresis and fatigue. HENT: Positive for sore throat. Negative for congestion, ear pain, postnasal drip, rhinorrhea and sinus pain. Respiratory: Negative for cough, chest tightness, shortness of breath and wheezing. Cardiovascular: Negative for chest pain, palpitations and leg swelling. Gastrointestinal: Positive for nausea. Negative for abdominal pain, diarrhea and vomiting. Musculoskeletal: Positive for myalgias. Skin: Negative for color change and rash. Neurological: Positive for headaches. Negative for dizziness. BP 104/71 (BP Site: Right Arm, BP Position: Sitting, BP Cuff Size: Regular Adult) Pulse 116 Temp 36.9 ?C (98.5 ?F) (Oral) Resp 16 Ht 167.6 cm (5' 5.98 ) Wt 60.8 kg (134 lb) LMP 09/27/2021 (Exact Date) SpO2 99% BMI 21.64 kg/m? BMI 21.64 kg/(m2) ALLERGIES Allergen Reactions Prozac [Fluoxetine] Mental Status Change sleepiness Physical Exam Constitutional: Appearance: Normal appearance. HENT: Right Ear: Tympanic membrane and external ear normal. Left Ear: Tympanic membrane and external ear normal. Ears: Comments: Erythremic ear canals Nose: Congestion and rhinorrhea present. Right Sinus: No maxillary sinus tenderness or frontal sinus tenderness. Left Sinus: No maxillary sinus tenderness or frontal sinus tenderness. Mouth/Throat: Mouth: Mucous membranes are moist. Pharynx: Posterior oropharyngeal erythema (with white lesions on tonsils) present. Cardiovascular: Rate and Rhythm: Normal rate and regular rhythm. Heart sounds: Normal heart sounds. No murmur heard. Pulmonary: Effort: Pulmonary effort is normal. No respiratory distress. Breath sounds: Normal breath sounds. No wheezing. Skin: General: Skin is warm and dry. Neurological: Mental Status: She is alert and oriented to person, place, and time. ASSESSMENT/PLAN: 1. Acute pharyngitis, unspecified etiology - ICD9: 462, ICD10: J02.9 (primary diagnosis) - suspect strep - patient start the antibiotic several days ago and took the last dose last night. Will start the medication back up today and will finish the 10 days. - use warm salt water gargles. - Rapid Strep negative in the office today 2. Sore throat - ICD9: 462, ICD10: J02.9 - RAPID STREP TEST B/O Suleman Nielsen CNP Follow Up: Return if symptoms worsen or fail to improve. Voice recognition software utilized. Minor grammatical and/or spelling errors may exist. Portions of this note have been entered by ancillary staff. I have reviewed and when necessary edited, so that they are an adequate record of my encounter with this patient. [facility] 12-01-2022 History of Presen t illness Narrative Morgan Boston is a 27 year old female here today acutely because of having: Sore Throat, Body Aches, Fever, Headache, and Nausea Patient states patient states she started with a sore throat, headache, nausea, fever over a month ago. She was seen at [facility] [facility] and with walk-in clinic and was given amoxicillin or Augmentin, but was feeling better the next day so she did not take it. Pt started with the same symptoms 6 days ago so she started the medication for several days, but feels it was not doing anything after 48 hours, so she stopped the medication. Denies any nasal congestion, drainage, cough or vomiting. Currently is taking ibuprofen for the pain. Review of Systems Constitutional: Positive for chills and fever. Negative for diaphoresis and fatigue. HENT: Positive for sore throat. Negative for congestion, ear pain, postnasal drip, rhinorrhea and sinus pain. Respiratory: Negative for cough, chest tightness, shortness of breath and wheezing. Cardiovascular: Negative for chest pain, palpitations and leg swelling. Gastrointestinal: Positive for nausea. Negative for abdominal pain, diarrhea and vomiting. Musculoskeletal: Positive for myalgias. Skin: Negative for color change and rash. Neurological: Positive for headaches. Negative for dizziness. BP 104/71 (BP Site: Right Arm, BP Position: Sitting, BP Cuff Size: Regular Adult) Pulse 116 Temp 36.9 C (98.5 F) (Oral) Resp 16 Ht 167.6 cm (5' 5.98 ) Wt 60.8 kg (134 lb) LMP 09/27/2021 (Exact Date) SpO2 99% BMI 21.64 kg/m BMI 21.64 kg/(m^2) ALLERGIES Allergen Reactions Prozac [Fluoxetine] Mental Status Change sleepiness Physical Exam Constitutional: Appearance: Normal appearance. HENT: Right Ear: Tympanic membrane and external ear normal. Left Ear: Tympanic membrane and external ear normal. Ears: Comments: Erythremic ear canals Nose: Congestion and rhinorrhea present. Right Sinus: No maxillary sinus tenderness or frontal sinus tenderness. Left Sinus: No maxillary sinus tenderness or frontal sinus tenderness. Mouth/Throat: Mouth: Mucous membranes are moist. Pharynx: Posterior oropharyngeal erythema (with white lesions on tonsils) present. Cardiovascular: Rate and Rhythm: Normal rate and regular rhythm. Heart sounds: Normal heart sounds. No murmur heard. Pulmonary: Effort: Pulmonary effort is normal. No respiratory distress. Breath sounds: Normal breath sounds. No wheezing. Skin: General: Skin is warm and dry. Neurological: Mental Status: She is alert and oriented to person, place, and time. ASSESSMENT/PLAN: 1. Acute pharyngitis, unspecified etiology - ICD9: 462, ICD10: J02.9 (primary diagnosis) - suspect strep - patient start the antibiotic several days ago and took the last dose last night. Will start the medication back up today and will finish the 10 days. - use warm salt water gargles. - Rapid Strep negative in the office today 2. Sore throat - ICD9: 462, ICD10: J02.9 - RAPID STREP TEST B/O Suleman Nielsen CNP Follow Up: Return if symptoms worsen or fail to improve. Voice recognition software utilized. Minor grammatical and/or spelling errors may exist. Portions of this note have been entered by ancillary staff. I have reviewed and when necessary edited, so that they are an adequate record of my encounter with this patient. documented in this encounter [facility] 11-07-2022 Note HNO ID: [id number] Author: Dianne Lawler APRN.ARUNA Service: ? Author Type: Nurse Practitioner Type: Progress Notes Filed: 11/07/2022 12:46 PM Note Text: Morgan Boston is a 27 year old female here today for a check up on her medical problems. Concern(s) today include: referral (Patient states that her and Dr. Scott had talked about a referral and a work up on her fatty liver. Patient would like to discuss more about this and do what needs to be done to get this going. 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 She had a1c with [employer] a year ago. She states result was 5.8. Paternal grandmother had Type II diabetes and her father has Type I diabetes. She has been seeing [facility] for painful menstrual cycles, irregular cycles, and hair on her chin. She stopped OCP around 5 years ago. She did not have a menstrual cycle for about 1-2 years after stopping OCP. She was last seen by Dr. Reina a little over a year ago. Patient reports nerve pain in hands, legs, and arms. She states at times pain down her spine. She states she has a lot of muscle twitching. She states this all started around age 23. She reports being clumsy, bumping into things, headaches, hearing loss with headaches. She states she had an MRI when she was 24. She states she saw neurology then and work up was negative. Her medications were reviewed today and her list is now up to date. She is compliant on taking her medications :Yes She is tolerating her medication(s) without side effects: Yes She is following an appropriate diet for her medical problems: Yes ACTIVE PROBLEM LIST Recurrent Major Depressive Disorder, in Partial Remission (Hcc) Chronic Ruq Pain Palpitations Petechiae PAST MEDICAL HISTORY Diagnosis Date Anxiety and depression PAST SURGICAL HISTORY Procedure Laterality Date NONE Social History Tobacco Use Smoking status: Never Smokeless tobacco: Never Vaping Use Vaping Use: Never used Substance Use Topics Alcohol use: Yes Comment: occ Drug use: Never Current Outpatient Medications on File Prior to Visit Medication Sig tretinoin (RETIN-A) 0.025 % topical cream Apply pea size drop to entire face at bedtime Clindamycin Phosphate (CLEOCIN T) 1 % lotion Apply to affected area twice daily. Of chest, may apply to face every morning if needed [DISCONTINUED] citalopram hydrobromide (CELEXA) 10 mg tablet Take 1 tablet by mouth once daily. No current facility-administered medications on file prior to visit. FAMILY HISTORY Problem Relation Age of Onset Diabetes Father Type 1 Pancreatic Cancer Maternal Grandmother Skin Cancer Maternal Aunt ALLERGIES Allergen Reactions Prozac [Fluoxetine] Mental Status Change sleepiness Review of Systems Constitutional: Negative for chills and fever. Respiratory: Negative for cough and shortness of breath. Cardiovascular: Negative for chest pain. Gastrointestinal: Positive for abdominal pain. Negative for reflux symptoms or heartburn BP 119/80 (BP Site: Right Arm, BP Position: Sitting, BP Cuff Size: Regular Adult) Pulse 84 Wt 63 kg (139 lb) LMP 09/27/2021 (Exact Date) SpO2 99% BMI 22.44 kg/m? BMI 22.44 kg/(m2) Glucose (mg/dL) Date Value 06/13/2022 94 Potassium (mmol/L) Date Value 06/13/2022 4.1 Sodium (mmol/L) Date Value 06/13/2022 138 Chloride (mmol/L) Date Value 06/13/2022 104 CO2 (mmol/L) Date Value 06/13/2022 27 Creatinine (mg/dL) Date Value 06/13/2022 0.62 BUN (mg/dL) Date Value 06/13/2022 9 Anion Gap (mmol/L) Date Value 06/13/2022 11.1 Calcium (mg/dL) Date Value 06/13/2022 8.9 Cholesterol, Total Date Value Ref Range Status 06/13/2022 170 130 - 200 mg/dL Final HDL Cholesterol Date Value Ref Range Status 06/13/2022 44 mg/dL Final Comment: National Cholesterol Education Program (NCEP) guidelines: <40 mg/dL: Low HDL-Cholesterol(major risk factor for CHD) > or = 60 mg/dL: High HDL-Cholesterol( negative risk factor for CHD) HDL-cholesterol is affected by a number of factors, e.g., smoking, exercise, hormones, sex, and age. 4th Generation Test; Results may be approximately 7% lower than previous values. LDL Date Value Ref Range Status 06/13/2022 111 mg/dL Final Comment: LDL: OPTIMAL FOR PEOPLE AT VERY HIGH RISK <70 OPTIMAL <100 NEAR OPTIMAL 100-129 BORDERLINE HIGH 130-159 HIGH 160-189 VERY HIGH >=190 Source: 2009 NCEP ATP III, ADA Guidelines Reviewed: January, Triglyceride Date Value Ref Range Status 06/13/2022 75 mg/dL Final Comment: TRIG: DESIRABLE: <150 mg/dL Hemoglobin A1C (%) Date Value 09/02/2021 5.8 Physical Exam Constitutional: Appearance: Normal appearance. HENT: Head: Normocephalic and atraumatic. Cardiovascular: Rate and Rhythm: Normal rate and regular rhythm. Pulses: Normal pulses. Heart sounds: Normal heart sounds. No murmur heard. No fr (more content not included)... [facility] 11-07-2022 Miscellaneous Notes Faxed hepatology referral, demographics, office notes, labs and imaging to [facility] Faxed medical genetics referral, demographics, office notes and labs to [facility] per patient's request. Patient advised they will call to schedule appointments. documented in this encounter [facility] 10-25-2022 Miscellaneous Notes Patient called in and said for the past two days she has been having a fever, body aches, migraine and her tonsils are swollen/white. No available appointments so I offered the walk in clinic. documented in this encounter [facility] 09-19-2022 Note HNO ID: [id number] Author: Ivonne Badillo PA-C Service: ? Author Type: Physician Composing Room Machinist Apprentice Type: Progress Notes Filed: 09/25/2022 10:19 PM Note Text: This is a 27 year old female without a personal history of skin cancer who presents today for a full skin exam. Concerned with a couple of moles. Denies any other growing or changing lesions, lesions which have been bleeding or itching, or any other lesions of concern today. She has a rash on her neck that comes and goes and it gets very dry and itchy. She states her rash is better now. She also has a fungus on her left great toe. She has tried a lot of OTC products but has not been successful. She has white areas on her nail. She is also having trouble with break outs on her face and chest. She has been using otc cleansers. She states she is having trouble with spider veins on her chest. She was wondering if she could get someone who could do laser treatments. Patient is engaging in sun protective measures. Patient is performing self-skin examinations. ALLERGIES No Known Allergies No current outpatient medications on file. No current facility-administered medications for this visit. PAST MEDICAL HISTORY Diagnosis Date Known health problems: none PAST PERSONAL SKIN PROBLEMS:None FAMILY HISTORY Problem Relation Age of Onset No Known Problems Mother No Known Problems Father Social History Socioeconomic History Marital status: Spouse name: Not on file Number of children: Not on file Years of education: Not on file Highest education level: Not on file Occupational History Not on file Social Needs Financial resource strain: Not on file Food insecurity: Worry: Not on file Inability: Not on file Transportation needs: Medical: Not on file Non-medical: Not on file Tobacco Use Smoking status: Never Smoker Smokeless tobacco: Never Used Substance and Sexual Activity Alcohol use: No Drug use: No Sexual activity: Not on file Lifestyle Physical activity: Days per week: Not on file Minutes per session: Not on file Stress: Not on file Relationships Social connections: Talks on phone: Not on file Gets together: Not on file Attends anabaptism service: Not on file Active member of club or organization: Not on file Attends meetings of clubs or organizations: Not on file Relationship status: Not on file Intimate partner violence: Fear of current or ex partner: Not on file Emotionally abused: Not on file Physically abused: Not on file Forced sexual activity: Not on file Other Topics Concerns: Not on file Social History Narrative Not on file REVIEW OF SYSTEMS: Patient feels well and denies any recent fevers, chills, or nightsweats. PHYSICAL EXAM BP 100/73 Ht 5' 6 (1.68m) Wt 136 lb 12.8 oz (62.1kg) LMP 09/27/2021 BMI 22.09 kg/(m2). General appearance: Well appearing, alert, in no acute distress, well-hydrated, well nourished. Skin: Total body skin examination performed. All areas examined including: scalp, face, conjunctiva/eyelids, lips/mouth, neck, chest, abdomen, back, left upper extremity, right upper extremity, digits/nails, left lower extremity, right lower extremity. -several medium brown well-circumscribed papules of trunk and extremities -many de la o macules with normal pigmentation of face, trunk and extremities -few closed comedones of forehead, b/l cheeks and chin -several closed comedones of chest, back is clear -few spider veins of chest -neck is clear currently -few white patches of left great toenail ASSESSMENT/PLAN: 1. Multiple benign nevi - ICD9: 216.9, ICD10: D22.9 (primary diagnosis) -trunk and extremities -benign, patient reassured -Recommend self-monitoring of lesions for ABCDE changes, discussed with patient -recommend diligent sun protection when outdoors 2. 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 Acne vulgaris - ICD9: 706.1, ICD10: L70.0 -will start Tretinoin 0.025% cream apply pea sized amount to entire face qhs, eRx sent -discussed side effects of dryness/skin irritation -may use OTC CeraVe or Cetaphil cream with SPF 30 daily -will start Clinda lotion 1% topically bid to chest, eRx sent -recommend over the counter BPO wash topically daily when showering to chest and back -Patient given recommendations for noncomedogenic facial products and moisturizers such as Cetaphil, CeraVe, Neutrogena and Aveeno. - TRETINOIN 0.025 % TOPICAL CREAM - CLINDAMYCIN 1 % LOTION 4. Family history of skin cancer - ICD9: V16.8, ICD10: Z80.8 -aunt -no evidence of concerning lesions on exam, patient reassured -recommend diligent sun protection when outdoors 5. Spider veins - ICD9: 448.1, ICD10: I78.1 -chest -given numbers to Dr Rosales to consider laser treatment if jason (more content not included)... [facility] 09-19-2022 Instructions Ivonne Badillo PA-C - 09/19/2022 10:38 AM EST May apply tretinoin cream to face at bedtime, may use every other night if needed if too much dryness or irritation May apply clinda lotion to chest twice daily and face every morning if needed -recommend over the counter benzoyl peroxide wash (Cetaphil 2.6% for face, Oxy or Panoxyl for chest) topically daily when showering Stop miconazole cream to left toenail, allow to heal without any grenadian, could apply nail strengthener to area if desired, vinegar/water soak to left foot if needed -use spf 30 sunscreen to chest, face daily Call if rash on neck recurs and take photos RECOMMENDED CLEANSERS AND MOISTURIZERS Cleansers Non-medicated cleansers: CeraVe Foaming Facial Cleanser Cetaphil Dermacontrol Oil Control Foaming Wash Purpose Gentle Cleansing Wash Neutrogena Fresh Foaming Wash CeraVe Hydrating Cleanser Cetaphil Gentle Skin Cleanser Cetaphil Antibacterial Gentle Cleansing Bar Dove Bar for sensitive skin Moisturizers Normal to oily skin-use every morning Cetaphil Dermacontrol Oil Moisturizer with SPF 30 CeraVe AM Facial Moisturizing Lotion with SPF 30 Dry skin-use at night Cetaphil Cream (jar) CeraVe Cream (jar) SUN PROTECTION How to use Sunscreen Pick one that protects against UVA and UVB rays (check the label) Apply SPF 30 each day Use SPF 30-45+ for longer sun exposure, like swimming or exercising in the sun Put it by your toothbrush, razor or table maker, and make it part of your daily routine Wear a water resistant sunscreen when swimming Apply to dry skin 15-30 minutes before going outside Re-apply every 2 hours and after swimming, sweating and/or towel drying Use one ounce (the size of a shot glass or small egg) to cover entire adult body Other ways to protect your skin from the sun Wear UV protective sunglasses, a hat with a 4 inch brim and sun protective clothing UPF 50, such as Coolibar, UV Skinz, [place], Lane and Under [place]. When possible, stay out of the sun when the rays are the strongest (between 11 am and 3 pm) Remember that sun exposure adds up throughout one's lifetime and every day exposure like walking the dog or gardening can lead to long-term skin damage Wear sunscreen, even when it is cloudy because 80% of sun rays still come through [place] Sunscreens are currently under review by the FDA. Do not inhale sprays or spray directly into face. Do not use near open flames as they are flammable. Consumer Report Best Picks UP and UP SPF 30-Target store brand NO AD-with Aloe and Vitamin E SPF 45 Equate Baby SPF 50 Playing Sports and Sweating (Non-[place]) [place]le Sport Ultra Sweat-proof SPF 30 [place] or Gel (doesn't sting eyes) Banana Boat [place] Oil Free-For Acne Prone Skin Bull Frog Quick Gel SPF 30 Shade Sun Block Oil-Free Gel SPF 30 Neutrogena Healthy Defense Oil-Free Sun block SPF 30 or 45 Protection for Eye Area (Sticks) Aveeno Baby Natural protection Mineral Block Stick SPF 50 Bull Frog Quick Stick SPF 36 Neutrogena Sun Block Stick SPF 30 Children (3 years and Older) Melquiades's Baby Daily Face and Body Lotion SPF 40 Neutrogena Pure and Free Baby Sun Block Lotion SPF 60+ Coppertone Kids SPF 50 Neutrogena Water guard Kids Sun Block Babies (6-36 Months) and Anyone with Sensitive Skin Vanicream products Aveeno Natural Skin Protection Mineral Block SPF 30 Blue Lizard Neutrogena Sheer Zinc SPF 50 Neutrogena Pure & Free Any chemical free block with zinc oxide or titanium dioxide (check label) Babies under the age of 6 months should not be exposed to the sun Dermatology Providers' Favorites for Daily Use Aveeno Positively Radiant SPF 30 CeraVe AM SPF 30 Cetaphil Oil Control SPF 30 Eucerin Everyday Protection SPF 30 Neutrogena Healthy Defense SPF 55 Neutrogena Ultra Sheer SPF 55 and 70 Oil of Olay Complete SPF 30 documented in this encounter [facility] 09-19-2022 History of Presen t illness Narrative This is a 27 year old female without a personal history of skin cancer who presents today for a full skin exam. Concerned with a couple of moles. Denies any other growing or changing lesions, lesions which have been bleeding or itching, or any other lesions of concern today. She has a rash on her neck that comes and goes and it gets very dry and itchy. She states her rash is better now. She also has a fungus on her left great toe. She has tried a lot of OTC products but has not been successful. She has white areas on her nail. She is also having trouble with break outs on her face and chest. She has been using otc cleansers. She states she is having trouble with spider veins on her chest. She was wondering if she could get someone who could do laser treatments. Patient is engaging in sun protective measures. Patient is performing self-skin examinations. ALLERGIES No Known Allergies No current outpatient medications on file. No current facility-administered medications for this visit. PAST MEDICAL HISTORY Diagnosis Date Known health problems: none PAST PERSONAL SKIN PROBLEMS:None FAMILY HISTORY Problem Relation Age of Onset No Known Problems Mother No Known Problems Father Social History Socioeconomic History Marital status: Spouse name: Not on file Number of children: Not on file Years of education: Not on file Highest education level: Not on file Occupational History Not on file Social Needs Financial resource strain: Not on file Food insecurity: Worry: Not on file Inability: Not on file Transportation needs: Medical: Not on file Non-medical: Not on file Tobacco Use Smoking status: Never Smoker Smokeless tobacco: Never Used Substance and Sexual Activity Alcohol use: No Drug use: No Sexual activity: Not on file Lifestyle Physical activity: Days per week: Not on file Minutes per session: Not on file Stress: Not on file Relationships Social connections: Talks on phone: Not on file Gets together: Not on file Attends anabaptism service: Not on file Active member of club or organization: Not on file Attends meetings of clubs or organizations: Not on file Relationship status: Not on file Intimate partner violence: Fear of current or ex partner: Not on file Emotionally abused: Not on file Physically abused: Not on file Forced sexual activity: Not on file Other Topics Concerns: Not on file Social History Narrative Not on file REVIEW OF SYSTEMS: Patient feels well and denies any recent fevers, chills, or nightsweats. PHYSICAL EXAM BP 100/73 Ht 5' 6 (1.68m) Wt 136 lb 12.8 oz (62.1kg) LMP 09/27/2021 BMI 22.09 kg/(m^2). General appearance: Well appearing, alert, in no acute distress, well-hydrated, well nourished. Skin: Total body skin examination performed. All areas examined including: scalp, face, conjunctiva/eyelids, lips/mouth, neck, chest, abdomen, back, left upper extremity, right upper extremity, digits/nails, left lower extremity, right lower extremity. -several medium brown well-circumscribed papules of trunk and extremities -many de la o macules with normal pigmentation of face, trunk and extremities -few closed comedones of forehead, b/l cheeks and chin -several closed comedones of chest, back is clear -few spider veins of chest -neck is clear currently -few white patches of left great toenail ASSESSMENT/PLAN: 1. Multiple benign nevi - ICD9: 216.9, ICD10: D22.9 (primary diagnosis) -trunk and extremities -benign, patient reassured -Recommend self-monitoring of lesions for ABCDE changes, discussed with patient -recommend diligent sun protection when outdoors 2. 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 Acne vulgaris - ICD9: 706.1, ICD10: L70.0 -will start Tretinoin 0.025% cream apply pea sized amount to entire face qhs, eRx sent -discussed side effects of dryness/skin irritation -may use OTC CeraVe or Cetaphil cream with SPF 30 daily -will start Clinda lotion 1% topically bid to chest, eRx sent -recommend over the counter BPO wash topically daily when showering to chest and back -Patient given recommendations for noncomedogenic facial products and moisturizers such as Cetaphil, CeraVe, Neutrogena and Aveeno. - TRETINOIN 0.025 % TOPICAL CREAM - CLINDAMYCIN 1 % LOTION 4. Family history of skin cancer - ICD9: V16.8, ICD10: Z80.8 -aunt -no evidence of concerning lesions on exam, patient reassured -recommend diligent sun protection when outdoors 5. Spider veins - ICD9: 448.1, ICD10: I78.1 -chest -given numbers to Dr Rosales to consider laser treatment if desired 6. Dermatitis - ICD9: 692.9, ICD10: L30.9 -clear currently of neck -advised to call if if would return, take photos if flares -recommend sensitive skin care measures daily 7. Discoloration of nail - ICD9: 703.8, ICD10: L60.8 -left great toe -more from nail grenadian being in place, leave off currently and could apply nail strengthener to nails -could soak in vinegar/water if desired but doesn't appear to have fungus Ivonne Badillo PA-C Return in about 3 months (around 12/20/2022). documented in this encounter [facility] 05-25-2022 Miscellaneous Notes Ultrasound is scheduled for May 27 at 7:00 am. [facility] documented in this encounter [facility] 05-25-2022 History of Presen t illness Narrative Images from the original note were not included. Morgan Boston is a 27 year old female here today for a check up on her medical problems. Concern(s) today include: Referral Request (Would like to discuss about a referral for a Genetisis and possibly surgeon for a cyst on her buttock. ) HPI Patient states she has some extra tissue on the one side of her coccyx. She states this has been this way for some time now. She states she broke her tail bone when she was younger. She saw a browning processor years ago who mentioned to her she had abnormally thin limbs. 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 She reports RUQ pain. She did have normal US of her gallbladder in 03/2020. Pain is triggered by running. Sometimes triggered by food. Her medications were reviewed today and her list is now up to date. She is compliant on taking her medications :Yes She is tolerating her medication(s) without side effects: Yes She is following an appropriate diet for her medical problems: Yes ACTIVE PROBLEM LIST Recurrent Major Depressive Disorder, in Partial Remission (Hcc) Chronic Ruq Pain Palpitations Petechiae PAST MEDICAL HISTORY Diagnosis Date Anxiety and depression PAST SURGICAL HISTORY Procedure Laterality Date NONE Social History Tobacco Use Smoking status: Never Smoker Smokeless tobacco: Never Used Vaping Use Vaping Use: Never used Substance Use Topics Alcohol use: Yes Comment: occ Drug use: Never Current Outpatient Medications on File Prior to Visit Medication Sig [DISCONTINUED] citalopram hydrobromide (CELEXA) 10 mg tablet Take 1 tablet by mouth once daily. No current facility-administered medications on file prior to visit. FAMILY HISTORY Problem Relation Age of Onset Diabetes Father Type 1 Pancreatic Cancer Maternal Grandmother ALLERGIES Allergen Reactions Prozac [Fluoxetine] Mental Status Change sleepiness Review of Systems Constitutional: Negative for chills and fever. Respiratory: Negative for cough and shortness of breath. Cardiovascular: Negative for chest pain and palpitations. BP 113/79 (BP Site: Right Arm, BP Position: Sitting, BP Cuff Size: Regular Adult) Pulse 80 Wt 61.7 kg (136 lb) LMP 09/27/2021 (Exact Date) SpO2 99% BMI 22.63 kg/m BMI 22.63 kg/(m^2) Glucose (mg/dL) Date Value 09/02/2021 86 Potassium (mmol/L) Date Value 05/21/2020 4.6 Sodium (mmol/L) Date Value 05/21/2020 144 Chloride (mmol/L) Date Value 05/21/2020 106 CO2 (mmol/L) Date Value 05/21/2020 27 Creatinine (mg/dL) Date Value 05/21/2020 0.71 BUN (mg/dL) Date Value 05/21/2020 8 Anion Gap (mmol/L) Date Value 05/21/2020 15.6 Calcium (mg/dL) Date Value 05/21/2020 10.1 Cholesterol, Total Date Value Ref Range Status 04/09/2015 192 100 - 199 mg/dL Final HDL Cholesterol Date Value Ref Range Status 04/09/2015 90 >55 mg/dL Final LDL Cholesterol Date Value Ref Range Status 04/09/2015 89 60 - 129 mg/dL Final Triglyceride Date Value Ref Range Status 04/09/2015 63 30 - 149 mg/dL Final Hemoglobin A1C (%) Date Value 09/02/2021 5.8 Physical Exam Vitals reviewed. Constitutional: Appearance: Normal appearance. She is well-developed. HENT: Head: Normocephalic and atraumatic. Neck: Thyroid: No thyromegaly. Cardiovascular: Rate and Rhythm: Normal rate and regular rhythm. Pulses: Normal pulses. Heart sounds: Normal heart sounds. No murmur heard. No friction rub. No gallop. Pulmonary: Effort: Pulmonary effort is normal. No respiratory distress. Breath sounds: Normal breath sounds. No stridor. No wheezing, rhonchi or rales. Abdominal: General: Bowel sounds are normal. There is no distension. Palpations: Abdomen is soft. There is no mass. Tenderness: There is no abdominal tenderness. There is no guarding or rebound. Hernia: No hernia is present. Musculoskeletal: Cervical back: Neck supple. Comments: Limbs x 4 are very thin Lymphadenopathy: Cervical: No cervical adenopathy. Skin: General: Skin is warm and dry. Neurological: Mental Status: She is alert and oriented to person, place, and time. Psychiatric: Mood and Affect: Mood normal. Behavior: Behavior normal. Thought Content: Thought content normal. Judgment: Judgment normal. ASSESSMENT/PLAN: 1. RUQ pain - ICD9: 789.01, ICD10: R10.11 (primary diagnosis) - Work up with RUQ ultrasound - US ABD RT UPPER QUADRANT 2. Closed fracture of sacrum and coccyx with routine healing, subsequent encounter - ICD9: V54.17, ICD10: S32.10XD, S32.2XXD - XR SACRUM/COCCYX 3V AP/LAT 3. Soft tissue disorder - ICD9: 729.90, ICD10: M79.9 - Patient is concerned about Familial partial lipodystrophy. She states her father's extremities look like hers. She has been referred to genetics several years ago but did follow through with that referral. Will start with basic lab workup and then refer to genetics. - CBC + DIFF - COMP METABOLIC PANEL - LIPID PANEL BASIC - INSULIN ASSAY BLOOD Dianne Lawler APRN.CNP Medical Decision Making: Problems: Low: Stable chronic illness and 2+ self-limited or minor problems Data: Unique test(s) ordered: 3+ Medical Decision Making Level: 3 - Low FOLLOW UP: No follow-ups on file. Portions of this note have been entered by ancillary staff. I have reviewed and when necessary edited, so that they are an adequate record of my encounter with this patient. documented in this encounter [facility] 04-24-2022 History of Presen t illness Narrative VV before eVisit addressed. documented in this encounter [facility] Diagnosis RUQ pain- Primary Abdominal pain, right upper quadrant Closed fracture of sacrum and coccyx with routine healing, subsequent encounter Soft tissue disorder Disorders of soft tissue, unspecified documented in this encounter [facility] note* Diagnosis Multiple benign nevi- Primary Benign neoplasm of skin, site unspecified Solar lentiginosis Other dyschromia Acne vulgaris Other acne Family history of skin cancer Family history of other specified malignant neoplasm Spider veins Nevus, non-neoplastic Dermatitis Contact dermatitis and other eczema, due to unspecified cause Discoloration of nail Other specified disease of nail documented in this encounter [facility] note* Diagnosis Acute pharyngitis, unspecified etiology- Primary Sore throat Acute pharyngitis documented in this encounter [facility] note* Diagnosis Pharyngitis, unspecified etiology- Primary Sore throat Acute pharyngitis documented in this encounter [facility] note* Diagnosis Familial partial lipodystrophy Lipodystrophy documented in this encounter [facility] note* Diagnosis Encounter for immunization- Primary Need for other specified prophylactic vaccination against single bacterial disease Needs flu shot Need for prophylactic vaccination and inoculation against influenza documented in this encounter [facility] note* Diagnosis Need for vaccination- Primary Need for prophylactic vaccination and inoculation against unspecified single disease documented in this encounter [facility] note* Diagnosis Fatigue, unspecified type- Primary Arthralgia, unspecified joint Nerve pain Neuralgia, neuritis, and radiculitis, unspecified documented in this encounter [facility] course Narrative No data available for this section [facility] Hospital Discharge instructions No data available for this section [facility] Progress note No data available for this section [facility] Reason for referral (narrative)* Diagnostic Procedure Only (Routine) - Pending Review Specialty Diagnoses / Procedures Referred By Pavel t Referred To Contact XR IMAGING Diagnoses Closed fracture of sacrum and coccyx with routine healing, subsequent encounter Procedures XR SACRUM/COCCYX 3V AP/LAT RADEX SACRUM & COCCYX MINIMUM 2 VIEWS Dianne Lawler, STAFF TRAINER.MANAGER STATISTICS [address] [place] [address] Xr Imaging Referral ID Status Reason Start Date Expiration Date Visits Requested Visits Authorized [id number] Pending Review Auto-Generat ed Referral 05/25/2022 06/24/2023 1 1 * Diagnostic Procedure Only (Routine) - Pending Review Specialty Diagnoses / Procedures Referred By Pavel chan Referred To Contact US IMAGING Diagnoses RUQ pain Procedures US ABD RT UPPER QUADRANT US ABDOMINAL REAL TIME W/IMAGE LIMITED Dianne Lawler APRN.CNP [address] [place] [address] Us Imaging Referral ID Status Reason Start Date Expiration Date Visits Requested Visits Authorized [id number] Pending Review Auto-Generat ed Referral 05/25/2022 06/24/2023 1 1 [facility] Summary Purpose Family History No Family History Records FoundNo Family History Records FoundNo Family History Records FoundNo Family History Records Found No data available for this section No Family History Records FoundNo Family History Records FoundNo Family History Records FoundNo Family History Records Found Advance Directives No Advanced Directives Records FoundDocuments on File Type Date Recorded Patient Manager Transition Expl anation Advance Directives and Living Will Power of Screen Tender Assessments Diagnosis History of type 1 diabetes mellitus Personal history of other endocrine, metabolic, and immunity disorders Weight gain Abnormal weight gain Myalgia Mylagia and myositis, unspecified Fever in adult Rash in adult Additional Source Comments INFORMATION SOURCE (unrecogn ized section and content) DATE CREATED AUTHOR AUTHOR'S ORGANIZ ATION 03/26/2020 [facility] DATE CREATED AUTHOR AUTHOR'S ORGANIZ ATION 06/22/2022 [facility] DATE CREATED AUTHOR AUTHOR'S ORGANIZ ATION 01/17/2023 [facility] DATE CREATED AUTHOR AUTHOR'S ORGANIZ ATION 05/18/2023 [facility] ([place] DATE CREATED AUTHOR AUTHOR'S ORGANIZ ATION 06/23/2023 [facility] DATE CREATED AUTHOR AUTHOR'S ORGANIZ ATION 07/06/2023 [facility] DATE CREATED AUTHOR AUTHOR'S ORGANIZ ATION 11/09/2023 [facility] Source Comments (unrecognize d section and content) In the event this informatio n is protected by the Federal Confidentiality of Alcohol and Drug Abuse Patient Records regulations: The Federal rules restrict any use of the information to criminally investigate or prosecute any alcohol or drug abuse patient.[facility] the event this information is protected by the Federal Confidentiality of Alcohol and Drug Abuse Patient Records regulations: The Federal rules restrict any use of the information to criminally investigate or prosecute any alcohol or drug abuse patient.[facility] the event this information is protected by the Federal Confidentiality of Alcohol and Drug Abuse Patient Records regulations: The Federal rules restrict any use of the information to criminally investigate or prosecute any alcohol or drug abuse patient.[facility] the event this information is protected by the Federal Confidentiality of Alcohol and Drug Abuse Patient Records regulations: The Federal rules restrict any use of the information to criminally investigate or prosecute any alcohol or drug abuse patient.[facility] the event this information is protected by the Federal Confidentiality of Alcohol and Drug Abuse Patient Records regulations: The Federal rules restrict any use of the information to criminally investigate or prosecute any alcohol or drug abuse patient.[facility] the event this information is protected by the Federal Confidentiality of Alcohol and Drug Abuse Patient Records regulations: The Federal rules restrict any use of the information to criminally investigate or prosecute any alcohol or drug abuse patient.[facility] the event this information is protected by the Federal Confidentiality of Alcohol and Drug Abuse Patient Records regulations: The Federal rules restrict any use of the information to criminally investigate or prosecute any alcohol or drug abuse patient.[facility] the event this information is protected by the Federal Confidentiality of Alcohol and Drug Abuse Patient Records regulations: The Federal rules restrict any use of the information to criminally investigate or prosecute any alcohol or drug abuse patient.[facility] the event this information is protected by the Federal Confidentiality of Alcohol and Drug Abuse Patient Records regulations: The Federal rules restrict any use of the information to criminally investigate or prosecute any alcohol or drug abuse patient.[facility] CenterIn the event this information is protected by the Federal Confidentiality of Alcohol and Drug Abuse Patient Records regulations: The Federal rules restrict any use of the information to criminally investigate or prosecute any alcohol or drug abuse patient.[facility] CenterIn the event this information is protected by the Federal Confidentiality of Alcohol and Drug Abuse Patient Records regulations: The Federal rules restrict any use of the information to criminally investigate or prosecute any alcohol or drug abuse patient.[facility] CenterIn the event this information is protected by the Federal Confidentiality of Alcohol and Drug Abuse Patient Records regulations: The Federal rules restrict any use of the information to criminally investigate or prosecute any alcohol or drug abuse patient.[facility] CenterIn the event this information is protected by the Federal Confidentiality of Alcohol and Drug Abuse Patient Records regulations: The Federal rules restrict any use of the information to criminally investigate or prosecute any alcohol or drug abuse patient.[facility] CenterIn the event this information is protected by the Federal Confidentiality of Alcohol and Drug Abuse Patient Records regulations: The Federal rules restrict any use of the information to criminally investigate or prosecute any alcohol or drug abuse patient.[facility] CenterIn the event this information is protected by the Federal Confidentiality of Alcohol and Drug Abuse Patient Records regulations: The Federal rules restrict any use of the information to criminally investigate or prosecute any alcohol or drug abuse patient.[facility] CenterIn the event this information is protected by the Federal Confidentiality of Alcohol and Drug Abuse Patient Records regulations: The Federal rules restrict any use of the information to criminally investigate or prosecute any alcohol or drug abuse patient.[facility] CenterIn the event this information is protected by the Federal Confidentiality of Alcohol and Drug Abuse Patient Records regulations: The Federal rules restrict any use of the information to criminally investigate or prosecute any alcohol or drug abuse patient.[facility] Reason for Visit (unrecogniz ed section and content) Reason Comments Referral Request Would like to discus fisher about a referral for a Genetisis and possibly surgeon for a cyst on her buttock. Reason Comments Procedure Ultrasound Reason Comments Derm Problem Full Body Skin Check Nail Fungus Reason Comments Appointment Reason Comments Internal Referrals/resources Hepatology/ Medical Genetics Reason Comments Sore Throat Symptoms started one week ago. Only Ibuprofen taken. Body Aches Fever Headache Nausea Reason Comments Sore Throat Patient has had this issue on and off for a while now, This time it started Monday. Fever Specialty Diagnoses / Procedures Referred By Pavel chan Referred To Contact Lab Diagnoses Familial partial lipodystrophy Procedures Genetic Sendout: Familial Partial Lipodystrophy (FPLD) Panel [place]ov[place] [address] Referral ID Status Reason Start Date Expiration Date Visits Re quested Visits Authorized [id number] Open 05/29/2023 05/28/2024 1 1 Reason Comments Patient Question Reason Comments Orders Reason Comments Patient Update Reason Comments Mass On and off for 1 yea r, discuss having Lymes test Sore Throat Dizziness Fatigue Neck Pain Nerve Pain Musculoskeletal Problem Twitching and nu mbness Headache Reason Comments Results Care Teams (unrecognized sec tion and content) Emergency Response Technician Relationship Specialty Start Date End Date Sully Scott MD [address] [place] [address] PCP - General Family Practice 05/13/20 Emergency Response Technician Relationship Specialty Start Date End Date Sully Scott MD [address] [place] [address] PCP - General Family Practice 05/13/20 Emergency Response Technician Relationship Specialty Start Date End Date Sully Scott MD [address] [place] [address] PCP - General Family Medicine 05/13/20 Emergency Response Technician Relationship Specialty Start Date End Date Sully Scott MD [address] [place] [address] PCP - General Family Medicine 05/13/20 Emergency Response Technician Relationship Specialty Start Date End Date Sully Scott MD [address] [place] [address] PCP - General Family Medicine 05/13/20 Emergency Response Technician Relationship Specialty Start Date End Date Sully Scott MD [address] [place] [address] PCP - General Family Medicine 05/13/20 Emergency Response Technician Relationship Specialty Start Date End Date Sully Scott MD [address] [place] [address] PCP - General Family Medicine 05/13/20 Emergency Response Technician Relationship Specialty Start Date End Date Dianne Lawler, STAFF TRAINER-MANAGER STATISTICS [address] [place] [address] PCP - General Family Medicine 05/29/23 Giovanny [place] [address] Attending Physician Medical Clinical Genetics 05/29/23 Emergency Response Technician Relationship Specialty Start Date End Date Sully Scott MD [address] [place], [place] [id number] PCP - [facility] 05/13/20 Emergency Response Technician Relationship Specialty Start Date End Date Sully Scott MD [address] [place], [place] [id number] PCP - [facility] 05/13/20 Emergency Response Technician Relationship Specialty Start Date End Date Sully Scott MD [address] [place], [place] [id number] PCP - [facility] 05/13/20 Emergency Response Technician Relationship Specialty Start Date End Date Sully Scott MD [address] [place], [place] [id number] PCP - [facility] 05/13/20 Emergency Response Technician Relationship Specialty Start Date End Date Sully Scott MD [address] [place], [place] [id number] PCP - [facility] 05/13/20 FOR RECORDS PERTAINING TO PATIENTS WHO ARE OR HAVE BEEN ENROLLED IN A CHEMICAL DEPENDENCY/SUBSTANCEABUSE PROGRAM, SOME INFORMATION MAY BE OMITTED. This clinical summary was aggregated from multiple sources. Caution should be exercised in using it in the provision of clinical care. This summary normalizes information from multiple sources, and as a consequence, information in this document may materially change the coding, format and clinical context of patient data. In addition, data may be omitted in some cases. CLINICAL DECISIONS SHOULD BE BASED ON THE PRIMARY CLINICAL RECORDS. [facility] [employer] provides no warranty or guarantee of the accuracy or completeness of information in this document.
== END | disposition home or self-care (01) ==
PROVIDERS: PCP Nurse Practitioner; Referring Provider Internal Medicine Infectious Disease; Visit Provider Internal Medicine Infectious Disease
DX: R50.9 Fever, unspecified (principal); R10.11 Right upper quadrant pain
CPT/HCPCS: 70491; 71260; 74177; Q9967

== ENCOUNTER → 2024-01-16 | Outpatient (CLI) | payer SELFPAY ==
[2024-01-16 12:43] LABS: HIV - WCH Non-Reactive (Nonreactive)
[2024-01-16 14:14] LABS: AST(SGOT) 13 U/L (15-37); Alanine Aminotransfer ALT/SGPT 17 U/L (13-56); Albumin, Serum 4.1 g/dL (3.2-5.0); Alkaline Phosphatase 58 U/L (45-117); Anion Gap 9 (5-15); BUN 7 mg/dL (7-18); BUN/Creat Ratio 9.5 RATIO (10-20); Bilirubin, Direct 0.07 mg/dL (0.00-0.30); CRP < 2.90 mg/L (0.0-3.0); Calcium,Total 8.8 mg/dL (8.5-10.1); Chloride 106 mmol/L (98-107); Creatinine, Serum 0.74 mg/dL (0.55-1.02); EST Glomerular Filtration Rate 99 mL/min (>60); Est Glom Filt Rate - Afr Amer 119 mL/min (>60); Globulin 3.9 g/dL (2.2-4.2); Glucose 92 mg/dL (74-106); Potassium 4.1 mmol/L (3.5-5.1); Rheumatoid Factor < 10.0 IU/mL (<15); Sodium Level 140 mmol/L (136-145); Thyroid Stim Hormone (TSH) 1.14 uIU/mL (0.358-3.74)
[2024-01-16 16:55] LABS: Absolute Lymphocyte Count 1.79 X10^3/uL (0.83-4.51); Absolute Neutrophil Count 3.6 X10^3/uL (2.0-7.7); Basophil# 0.05 X10^3/uL; Basophil% 0.8 % (0-1); Eosinophil# 0.08 X10^3/uL; Eosinophils% 1.3 % (0-5); Hematocrit 42.9 % (37-47); Hemoglobin 13.5 g/dL (12.0-15.0); Lymphocyte # 1.79 X10^3/ul (0.83-4.51); Lymphocyte % 28.7 % (19-41); Mean Corp Hgb Conc 31.5 g/dL (32-36); Mean Corpuscular Hgb 27.1 pg (27.0-32.0); Mean Corpuscular Volume 86.1 fL (81-99); Mean Platelet Vol. 9.5 fl (6.2-12.0); Monocyte# 0.69 X10^3/uL; Monocyte% 11.1 % (0-10); NRBC Flagged by Analyzer 0 % (0-5); Neutrophil # 3.62 X10^3/uL (2.7-7.7); Neutrophil % 57.9 % (47-70); Platelet Count 345 K/mm3 (150-450); RBC Distribution Width CV 14.7 % (11.6-14.6); RBC Distribution Width SD 46.6 fl (35.1-43.9); Red Blood Count 4.98 M/mm3 (4.2-5.4); White Blood Count 6.2 K/mm3 (4.4-11.0)
[2024-01-16 17:19] LABS: Erythrocyte Sedimentation Rate 5 mm/hr (0-30)
[2024-01-17 13:08] LABS: CCP IgG Antibodies 3 units (0-19); HEPATITIS B SURFACE AG Negative (Negative); Hep C Antibodies Non Reactive (Non Reactive); Hepatitis A IgM Antibody Negative (Negative); Hepatitis B Core AB IgM Negative (Negative)
== END | disposition home or self-care (01) ==
PROVIDERS: PCP Nurse Practitioner; Referring Provider Internal Medicine Infectious Disease; Visit Provider Internal Medicine Infectious Disease
DX: A68.9 Relapsing fever, unspecified (principal); M25.50 Pain in unspecified joint; R50.9 Fever, unspecified
CPT/HCPCS: 80048; 80074; 80076; 84443; 85025; 85652; 86140; 86200; 86431; 86703; 87040